=== PATIENT | female | born 1990 | race Caucasian/White ===

== ENCOUNTER 2016-09-26 15:07 | Emergency (ER) | payer OTHER ==
[2016-09-26] MEDS ORDERED: MECLIZINE 12.5 MG TABLET PO STA (17:15)
[2016-09-26] MEDS ORDERED: MECLIZINE 12.5 MG TABLET PO ONE (17:18)
== END 2016-09-26 17:38 | disposition home or self-care (01) ==
DX: R42 Dizziness and giddiness (principal); I10 Essential (primary) hypertension; Z87.891 Personal history of nicotine dependence
CPT/HCPCS: 81025; 99283; A9270

== ENCOUNTER 2016-12-23 13:29 | Emergency (ER) | payer OTHER ==
[2016-12-23] MEDS ORDERED: ONDANSETRON ODT 4 MG TABLET TL STA ×2 (14:09→15:12)
[2016-12-23] MEDS ORDERED: ONDANSETRON ODT 4 MG TABLET ONE ×2 (14:15→15:39)
[2016-12-23 14:18] LABS: BILIRUBIN,URINE NEGATIVE (NEGATIVE)
[2016-12-23 14:20] LABS: UA w/ MICROSCOPIC CHARGE YES
[2016-12-23 14:26] LABS: UR CULTURE IF IND INDICATED; WBC,URINE 0-3 /HPF (0-5)
[2016-12-23 14:31] LABS: HCG UR QUAL NEGATIVE
[2016-12-23 15:08] VITALS: BP 151/71
[2016-12-23] MEDS ORDERED: HYDROcod/ACETAM 5/325 MG TABLET PO STA (15:34)
[2016-12-23] MEDS ORDERED: HYDROcod/ACETAM 5/325 MG TABLET ONE (15:39)
--- NOTE | 2016-12-23 15:43 | ED Physician Documentation ---
PD HPI FEMALE - Stated complaint Stated Complaint: FEMALE - Chief complaint Chief Complaint: Abd Pain - History obtained from History obtained from: Patient - History of Present Illness Timing - onset: How many days ago (3) Timing - details: Still present Associated symptoms: Pelvic pain, Vaginal bleeding, Urinary frequency. No: Dysuria Similar symptoms before: Has not had sx before - Additional information Additional information: Patient is a 26-year-old female who presents with cramping suprapubic abdominal pain radiating to her lower back. Her symptoms started 3 days ago with onset of her menstrual period. This menstrual period is heavier than usual, soaking up to one pad every 4 hours. She denies fever or dysuria, but reports frequency of urination. She reports nausea, without vomiting. She denies history of similar symptoms in the past. Review of Systems Constitutional: denies: Fever Nose: denies: Congestion Throat: denies: Sore throat Cardiac: denies: Chest pain / pressure Respiratory: denies: Dyspnea, Cough GI: reports: Abdominal Pain, Nausea. denies: Vomiting : reports: Frequency, LMP (Started 3 days ago.), Vaginal bleeding. denies: Dysuria Skin: denies: Rash Musculoskeletal: reports: Back pain (Mild lower back pain.) Neurologic: reports: Headache. 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 Other Past Medical History: pcos - Past Surgical History Past Surgical History: No - Present Medications Home Medications: Ambulatory Orders Medication Instructions Recorded Confirmed Promethazine [Phenergan] 25 - 50 mg PO Q6H PRN #10 tab 12/23/16 Tramadol HCl [Ultram] 50 mg PO BID PRN #15 tablet 12/23/16 - Allergies Allergies/Adverse Reactions: Allergies Allergy/AdvReac Type Severity Reaction Status Date / Time Sulfa (Sulfonamide Allergy Hives Verified 11/01/13 11:40 Antibiotics) sulfamethoxazole AdvReac Hives Verified 10/02/15 16:56 [From Bactrim] trimethoprim [From Bactrim] AdvReac Hives Verified 10/02/15 16:56 - Social History Does the pt smoke?: No Smoking Status: Former smoker Does the pt drink ETOH?: Yes Does the pt have substance abuse?: No - Immunizations Immunizations are current?: Yes - POLST Patient has POLST: No PD ED PE NORMAL - Vitals Vital signs reviewed: Yes (hypertensive) - General General: Alert and oriented X 3, Other (Morbidly obese.) - HEENT HEENT: Atraumatic - Neck Neck: No adenopathy - Cardiac Cardiac: RRR - Respiratory Respiratory: No respiratory distress, Clear bilaterally - Abdomen Abdomen: Normal bowel sounds, Soft, Other (Left lower quadrant/suprapubic tenderness to palpation, without rebound or guarding.) - Female Female : 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 No: CMT, Dilated cervix Results - Vitals Vitals: Vital Signs - 24 hr 12/23/16 12/23/16 13:40 15:07 Temperature 36.8 C 36.8 C Heart Rate 79 77 Respiratory 18 17 Rate Blood Pressure 195/110 H 151/71 H O2 Saturation 98 99 Oxygen O2 Source Room air - Labs Labs: Laboratory Tests 12/23/16 14:00 Urine Color RED/BLOODY Urine Clarity HAZY Urine pH 6.0 Ur Specific [place] 1.020 Urine Protein 30 H Urine Glucose (UA) NEGATIVE Urine Ketones NEGATIVE Urine Occult Blood LARGE H Urine Nitrite NEGATIVE Urine Bilirubin NEGATIVE Urine Urobilinogen 0.2 (NORMAL) Ur Leukocyte Esterase TRACE H Urine RBC TNTC H Urine WBC 0-3 Ur Squamous Epith Cells FEW Squamous Urine Bacteria Rare Ur Microscopic Review INDICATED Urine Culture Comments INDICATED Urine HCG, Qual NEGATIVE PD MEDICAL DECISION MAKING - ED course Complexity details: reviewed results, re-evaluated patient, considered differential, d/w patient, d/w family ED course: The patient's presentation is most consistent with heavy menstrual period with associated cramping. Urinalysis is negative for evidence of urinary tract infection, and urine test is negative. Her presentation does not suggest diverticulitis or appendicitis. I doubt ovarian torsion, although ovarian cyst remains a possibility, particularly given the patient's history of polycystic ovarian syndrome. Treatment in the emergency department included administration of Zofran 4 mg orally 2, and Vicodin 1 tablet orally. She is being discharged with a prescription for Ultram, 15 tablets, and Phenergan. I discussed with her and her the expected course of illness, symptomatic treatment and outpatient follow-up, as well as potentially worrisome signs or symptoms that should prompt reevaluation in the emergency department. Departure - Departure Disposition: 01 Home, Self Care Clinical Impression: Pelvic pain, Menstrual cramps Condition: Stable Instructions: ED Pelvic Pain [facility] Follow-Up: MARYBETH MCGILL [Primary Care Provider] - Prescriptions: Promethazine [Phenergan] 25 - 50 mg PO Q6H PRN #10 tab PRN Reason: Nausea / Vomiting Tramadol HCl [Ultram] 50 mg PO BID PRN #15 tablet PRN Reason: Pain Comments: Drink plenty of fluids. You can use ibuprofen, up to 800 mg 3 times daily if needed for pain. You can also use tramadol as prescribed if needed for pain. You can use Phenergan as prescribed if needed for nausea. Follow up with your primary physician within one to 2 weeks. Call to schedule an appointment. Return to the emergency department if you develop increasing pain, or otherwise worsening symptoms. Discharge Date/Time: 12/23/16 16:05
== END 2016-12-23 16:05 | disposition home or self-care (01) ==
LOC: ED 13:29
DX: N94.6 Dysmenorrhea, unspecified (principal); R10.2 Pelvic and perineal pain; R11.0 Nausea; I10 Essential (primary) hypertension; Z87.891 Personal history of nicotine dependence
CPT/HCPCS: 81001; 81025; 87086; 87491; 87591; 99283; 99284; A9270; Q0162; 81003

== ENCOUNTER 2017-05-11 13:58 | Emergency (ER) | payer OTHER ==
--- NOTE | 2017-05-11 14:13 | ED Physician Documentation ---
PD HPI UPPER EXT INJURY - Stated complaint Stated Complaint: CAT BITE - Chief complaint Chief Complaint: Wound - History obtained from History obtained from: Patient - History of Present Illness Location: Other (She was bitten to the right wrist by her own fully immunized cat just prior to arrival. Pain is minimal. 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 - Past Surgical History Past Surgical History: No - Present Medications Home Medications: Ambulatory Orders Medication Instructions Recorded Confirmed Amox/Clav 875/125 [Augmentin] 1 each PO Q12H #10 tablet 05/11/17 Propranolol HCl [Innopran Xl] 120 mg PO DAILY 05/11/17 05/11/17 - Allergies Allergies/Adverse Reactions: Allergies Allergy/AdvReac Type Severity Reaction Status Date / Time Sulfa (Sulfonamide Allergy Hives Verified 11/01/13 11:40 Antibiotics) sulfamethoxazole AdvReac Hives Verified 10/02/15 16:56 [From Bactrim] trimethoprim [From Bactrim] AdvReac Hives Verified 10/02/15 16:56 - Social History Does the pt smoke?: No Smoking Status: Never smoker Does the pt drink ETOH?: Yes Does the pt have substance abuse?: No - Immunizations Immunizations are current?: Yes - POLST Patient has POLST: No PD ED PE NORMAL - Vitals Vital signs reviewed: Yes - General General: Alert and oriented X 3, No acute distress - Extremities Extremities: Other (There is a single puncture wound over the wrist flexor crease, Between where the ulnar artery in the median nerve would be, there is no distal neurovascular compromise, full range of motion.) - Neuro Neuro: Alert and oriented X 3, Normal speech - Psych Psych: Normal mood, Normal affect Results - Vitals Vitals: Vital Signs - 24 hr 05/11/17 14:06 Temperature 36.9 C Heart Rate 80 Respiratory 17 Rate Blood Pressure 190/107 H O2 Saturation 100 Oxygen O2 Source Room air PD MEDICAL DECISION MAKING - ED course ED course: She had already irrigated the wound at home, dressing was placed, tetanus was updated and she was placed on Augmentin. Departure - Departure Disposition: Home, Self Care Clinical Impression: Animal bite with open wound Hypertension Qualifiers: Hypertension type: essential hypertension Qualified Code(s): I10 - Essential ( primary) hypertension Condition: Good Record reviewed to determine appropriate education?: Yes Instructions: Bites Scratches Animal Prescriptions: Amox/Clav 875/125 [Augmentin] 1 each PO Q12H #10 tablet Comments: You can wash the wound with soap and water, otherwise keep a dressing on it such as a Band-Aid. Recheck your blood pressure with your doctor in 1 week, it was quite high today. Return for signs of infection, specifically redness, swelling, drainage, increased pain, limited range of motion, or fever.
[2017-05-11] MEDS: AMOX/CLAV 875 MG/125 MG TABLET PO STA (14:25)
[2017-05-11] MEDS: TETANUS/DIPHTHERIA/PERTUSSIS 0.5 ML SYRINGE IM ONE (14:26)
[2017-05-11] MEDS ORDERED: TETANUS/DIPHTHERIA/PERTUSSIS 0.5 ML SYRINGE IM ONE (14:29)
[2017-05-11] MEDS ORDERED: AMOX/CLAV 875 MG/125 MG TABLET PO ONE (14:29)
[2017-05-11 14:53] VITALS: BP 161/100
== END 2017-05-11 14:50 | disposition home or self-care (01) ==
LOC: ED 13:58
DX: S60.871A Other superficial bite of right wrist, initial encounter (principal); W55.01XA Bitten by cat, initial encounter; I10 Essential (primary) hypertension; Z23 Encounter for immunization
CPT/HCPCS: 90471; 99283

== ENCOUNTER 2017-05-15 17:44 | Emergency (ER) | payer OTHER ==
[2017-05-15] MEDS ORDERED: SUMAtriptan 6 MG/0.5 ML VIAL SUBQ STA (18:11)
--- NOTE | 2017-05-15 18:15 | ED Physician Documentation ---
History of Present Illness - Stated complaint Stated Complaint: BLOOD PRESSURE - Chief complaint Chief Complaint: General - History obtained from History obtained from: Patient, Family - History of Present Illness Timing: Today Pain level max: 5 Pain level now: 5 Improved by: nothing Worsened by: nothing - Additonal information Additional information: Patient is a 26-year-old female with intermittent hypertension for the past several weeks. Today noted her blood pressure to be approximately 190 systolic , called and told to come here. Denies any chest pain, shortness of breath, visual changes. Does have headache intermittently and states that this feels like her normal headache today. No vision disturbances. No focal neurological deficits. Review of Systems Constitutional: denies: Fever, Chills Ears: denies: Ear pain Nose: denies: Rhinorrhea / runny nose, Congestion Cardiac: denies: Chest pain / pressure Respiratory: denies: Cough GI: denies: Abdominal Pain, Nausea, Vomiting, Diarrhea Skin: denies: Rash Musculoskeletal: denies: Neck pain, Back pain Neurologic: reports: Headache (mild generalized, aching, dull. similar to prior headaches. Occasional burning.). 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 - Past Surgical History Past Surgical History: No - Present Medications Home Medications: Ambulatory Orders Medication Instructions Recorded Confirmed Propranolol HCl [Innopran Xl] 120 mg PO DAILY 05/11/17 05/15/17 Amox/Clav 875/125 [Augmentin 1 tab PO DAILY 05/15/17 05/15/17 875/125] - Allergies Allergies/Adverse Reactions: Allergies Allergy/AdvReac Type Severity Reaction Status Date / Time Sulfa (Sulfonamide Allergy Hives Verified 11/01/13 11:40 Antibiotics) sumatriptan [From Imitrex] AdvReac Intermediate Anxiety Verified 05/15/17 18:47 sulfamethoxazole AdvReac Hives Verified 10/02/15 16:56 [From Bactrim] trimethoprim [From Bactrim] AdvReac Hives Verified 10/02/15 16:56 - Social History Does the pt smoke?: No Smoking Status: Never smoker Does the pt drink ETOH?: Yes Does the pt have substance abuse?: No - Immunizations Immunizations are current?: Yes - POLST Patient has POLST: No PD ED PE NORMAL - Vitals Vital signs reviewed: Yes - General General: Alert and oriented X 3, No acute distress, Well developed/nourished - HEENT HEENT: PERRL, Moist mucous membranes - Neck Neck: Supple, no meningeal sign - Cardiac Cardiac: RRR, Strong equal pulses - Respiratory Respiratory: No respiratory distress, Clear bilaterally - Abdomen Abdomen: Soft, Non tender, Non distended - Back Back: No CVA TTP - Derm Derm: Warm and dry, No rash - Extremities Extremities: No edema - Neuro Neuro: Alert and oriented X 3, group home supervisor 2-12 intact, No motor deficit, No sensory deficit, Normal speech - Psych Psych: Normal mood, Normal affect Results - Vitals Vitals: Vital Signs - 24 hr 05/15/17 05/15/17 05/15/17 17:50 17:59 18:25 Temperature 36.9 C Heart Rate 76 87 Respiratory 22 16 Rate Blood Pressure 156/86 H 161/92 H O2 Saturation 100 100 05/15/17 18:28 Temperature Heart Rate 84 Respiratory 16 Rate Blood Pressure 157/83 H O2 Saturation 97 Oxygen O2 Source Room air PD MEDICAL DECISION MAKING - ED course Complexity details: re-evaluated patient, considered differential, d/w patient, d/w family ED course: Patient is a 26-year-old female who presents to the emergency department with asymptomatic hypertension today. Her blood pressure decreased on its own in the emergency department. Headache felt better after Ativan and Imitrex. Imitrex did initially make her feel like her skin was "on fire". But this quickly resolved. She will follow-up with her PCP for further evaluation and care. No chest pain. No shortness of breath. No neurological deficits. No vision changes. Patient counseled regarding signs and symptoms for which I believe and urgent re-evaluation would be necessary. Patient with good understanding of and agreement to plan and is comfortable going home at this time This document was made in part using voice recognition software. While efforts are made to proofread this document, sound alike and grammatical errors may occur. Departure - Departure Disposition: 01 Home, Self Care Clinical Impression: Hypertension Qualifiers: Hypertension type: unspecified Qualified Code(s): I10 - Essential (primary) hypertension Headache Qualifiers: Headache type: unspecified Headache chronicity pattern: acute headache Intractability: not intractable Qualified Code(s): R51 - Headache Condition: Good Instructions: ED Cephalgia Unspecified, ED HTN Established Follow-Up: MARYBETH MCGILL [Primary Care Provider] - Within 1 week Comments: Make sure to keep a log of your blood pressures. Follow-up with your doctor so that they may adjust your blood pressure medications. Return if you worsen Discharge Date/Time: 05/15/17 18:51
[2017-05-15] MEDS ORDERED: SUMAtriptan 6 MG/0.5 ML VIAL SUBQ ONE (18:19)
[2017-05-15] MEDS ORDERED: LORazepam 0.5 MG TABLET PO STA (18:24)
[2017-05-15 18:28] VITALS: BP 157/83
[2017-05-15] MEDS ORDERED: LORazepam 0.5 MG TABLET ONE (18:32)
== END 2017-05-15 18:51 | disposition home or self-care (01) ==
LOC: ED 17:44
DX: I10 Essential (primary) hypertension (principal); R51 Headache
CPT/HCPCS: 96372; 99283; A9270

== ENCOUNTER 2017-10-30 18:31 | Emergency (ER) | payer OTHER ==
[2017-10-30 19:00] LABS: BILIRUBIN,URINE NEGATIVE (NEGATIVE); GLUCOSE, URINE (UA) NEGATIVE (NEGATIVE); KETONES,URINE (UA) NEGATIVE (NEGATIVE); LEUKOCYTE ESTERASE, URINE NEGATIVE (NEGATIVE); NITRITE,URINE NEGATIVE (NEGATIVE); OCCULT BLOOD,URINE NEGATIVE (NEGATIVE); PROTEIN,URINE NEGATIVE (NEGATIVE); UROBILINOGEN,URINE 0.2 (NORMAL) E.U./dL (NORMAL)
[2017-10-30 19:08] LABS: CLARITY,URINE CLEAR (CLEAR); HCG UR QUAL NEGATIVE
[2017-10-30 19:15] LABS: BASOPHILS % (AUTO) 0.4 %; EOSINOPHILS # (AUTO) 0.2 10^3/uL (0.0-0.7); HGB - HEMOGLOBIN 13.9 g/dL (12.0-16.0); LYMPHOCYTES # (AUTO) 2.6 10^3/uL (1.5-3.5); LYMPHOCYTES % (AUTO) 24.7 %; MEAN CORPUSCULAR HEMOGLOBIN 27.9 pg (27.0-31.0); MEAN CORPUSCULAR HGB CONC 32.7 g/dL (32.0-36.0); MEAN CORPUSCULAR VOLUME 85.5 fL (81.0-99.0); MEAN PLATELET VOLUME 7.7 fL (7.9-10.8); MONOCYTES # (AUTO) 0.6 10^3/uL (0.0-1.0); MONOCYTES % (AUTO) 5.9 %; PLT - PLATELET COUNT 266 10^3/uL (130-450); RED BLOOD COUNT 4.97 10^6/uL (4.20-5.40); RED CELL DISTRIBUTION WIDTH 13.8 % (12.0-15.0); WHITE BLOOD COUNT 10.5 x10^3/uL (4.8-10.8)
[2017-10-30 19:30] LABS: ALBUMIN/GLOBULIN RATIO 1.6 (1.0-2.2); ALKALINE PHOSPHATASE 59 IU/L (42-121); ALT ALANINE AMINOTRANSFERASE 32 IU/L (10-60); AST ASPARTATE AMINOTRANSFERASE 26 IU/L (10-42); BILIRUBIN,TOTAL < 0.2 mg/dL (0.2-1.0); BUN - BLOOD UREA NITROGEN 11 mg/dL (6-20); CALCIUM 9.6 mg/dL (8.5-10.3); CARBON DIOXIDE - CO2 30 mmol/L (21-32); CHLORIDE 98 mmol/L (101-111); CREATININE 0.7 mg/dL (0.4-1.0); GFR - MDRD 100 (>89); GLUCOSE 96 mg/dL (70-100); LIPASE 40 U/L (22-51); SODIUM 137 mmol/L (135-145); TOTAL PROTEIN 8.2 g/dL (6.7-8.2)
[2017-10-30] MEDS ORDERED: KETOROLAC 60 MG/2 ML VIAL IVP STA (19:46)
[2017-10-30] MEDS ORDERED: IOPAMIDOL-300 100 ML VIAL ONE (20:05)
[2017-10-30] MEDS ORDERED: IOPAMIDOL-300 100 ML VIAL IVP ONE (20:48)
[2017-10-30 21:02] VITALS: BP 152/84
--- NOTE | 2017-10-30 21:13 | CT Preliminary Report ---
Exam: CT ABDOMEN/PELVIS W/ IMPRESSION: No acute intraductal abnormality. Specifically no evidence of urinary obstruction or other cause for right flank pain. However, pyelonephritis remains a clinical diagnosis which cannot be completely exc luded by any imaging. [facility] SITE ID: [id number]
--- NOTE | 2017-10-30 21:17 | CT Report ---
EXAM: CT ABDOMEN AND PELVIS EXAM DATE: 10/30/2017 08:57 PM. CLINICAL HISTORY: Right flank pain. COMPARISONS: Chest radiograph 03/20/2015 and 05/10/2014. TECHNIQUE: Routine helical CT imaging was performed through the abdomen and pelvis. IV contrast: 100 mL Isovue 300. Enteric contrast: No. Reconstructions: Coronal and sagittal. In accordance with CT protocol optimization, one or more of the following dose reduction techniques w ere utilized for this exam: automated exposure control, adjustment of mA and/or KV based on patient s ize, or use of iterative reconstructive technique. FINDINGS: Lung Bases: Unremarkable. Liver: Normal size and surface contour. A subcentimeter hypodensity within the superior right hepatic lobe centrally is too small to fully characterize, statistically likely a cyst or hemangioma in the absence of known malignancy (3/15). Gallbladder/Bile Ducts: Unremarkable. Spleen: Normal. Pancreas: Normal. Adrenal Glands: Normal. Kidneys: Normal. No masses or hydronephrosis. Peritoneal Cavity/Bowel: -No free fluid. No extraluminal gas. -No abnormally enlarged lymph nodes. -No evidence of bowel obstruction or inflammation. Stool burden is above average. The appendix is not discretely visualized but there are no secondary signs of acute appendicitis. Pelvic Organs: The urinary bladder is near completely decompressed but unremarkable. -The uterus is anteflexed and within normal limits. No adnexal mass demonstrated Vasculature: No aneurysms or other significant abnormality. Bones: No significant abnormality. Other: Tiny fat-containing periumbilical hernia. No bowel containing abdominal wall hernia. IMPRESSION: No acute intra-abdominal abnormality. Specifically no evidence of urinary obstruction or other cause for right flank pain. However, pyelonephritis remains a clinical diagnosis which cannot be completely excluded by any imaging. [facility] Referring Provider Line: [phone] SITE ID: [id number]
--- NOTE | 2017-10-30 21:22 | ED Physician Documentation ---
PD HPI ABD PAIN - Stated complaint Stated Complaint: KIDNEY PX - Chief complaint Chief Complaint: Abd Pain - History obtained from History obtained from: Patient, Family - History of Present Illness Timing - onset: How many weeks ago (1.5) Timing - duration: Weeks (1.5) Timing - details: Gradual onset Pain level max: 8 Pain level now: 7 Quality: Aching, Pain Location: Other (R flank) Radiation: Other (Nonradiating) Improved by: Laying still Worsened by: Moving, Palpation Associated symptoms: Constipation (Intermittent). No: Fever, Nausea, Vomiting, Hematemesis, Diarrhea, Melena, Hematochezia, Dysuria, Hematuria, Chest pain, Dizzy, Near syncope / syncope Similar symptoms before: No diagnosis - Additional information Additional information: Patient is a 27-year-old female with right flank pain for the past week and a half. This is intermittent. Saw her doctor last Monday and was told that she had white blood cells on her urine and should come to the emergency department. 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 - Past Surgical History Past Surgical History: No - Present Medications Home Medications: Ambulatory Orders Medication Instructions Recorded Confirmed Propranolol HCl [Innopran Xl] 120 mg PO DAILY 05/11/17 05/15/17 Amox/Clav 875/125 [Augmentin 1 tab PO DAILY 05/15/17 05/15/17 875/125] Cyclobenzaprine [Flexeril] 10 mg PO TID PRN #20 tablet 10/30/17 Meloxicam [Mobic] 15 mg PO DAILY PRN #20 tablet 10/30/17 Polyethylene Glycol 3350 [Miralax] 17 gm PO DAILY PRN #1 bottle 10/30/17 - Allergies Allergies/Adverse Reactions: Allergies Allergy/AdvReac Type Severity Reaction Status Date / Time Sulfa (Sulfonamide Allergy Hives Verified 11/01/13 11:40 Antibiotics) sumatriptan [From Imitrex] AdvReac Intermediate Anxiety Verified 05/15/17 18:47 sulfamethoxazole AdvReac Hives Verified 10/02/15 16:56 [From Bactrim] trimethoprim [From Bactrim] AdvReac Hives Verified 10/02/15 16:56 - Social History Does the pt smoke?: No Smoking Status: Never smoker Does the pt drink ETOH?: Yes Does the pt have substance abuse?: No - Immunizations Immunizations are current?: Yes - POLST Patient has POLST: No PD ED PE NORMAL - Vitals Vital signs reviewed: Yes - General General: Alert and oriented X 3, No acute distress - HEENT HEENT: Moist mucous membranes - Neck Neck: Supple, no meningeal sign - Cardiac Cardiac: RRR, Strong equal pulses - Respiratory Respiratory: No respiratory distress, Clear bilaterally - Abdomen Abdomen: Soft, Non tender, Non distended - Back Back: No spinal TTP, Other (Mild right CVA tenderness. No spasm present. No midline tenderness to palpation or percussion) - Derm Derm: Warm and dry - Neuro Neuro: Alert and oriented X 3 - Psych Psych: Normal mood, Normal affect Results - Vitals Vitals: Oxygen O2 Source Room air - Labs Labs: Laboratory Tests 10/30/17 10/30/17 10/30/17 18:46 19:00 19:00 WBC 10.5 RBC 4.97 Hgb 13.9 Hct 42.5 MCV 85.5 MCH 27.9 MCHC 32.7 RDW 13.8 Plt Count 266 MPV 7.7 L Neut # 7.0 H Lymph # 2.6 [place] # 0.6 Eos # 0.2 Baso # 0.0 Absolute Nucleated RBC 0.00 Nucleated RBC % 0.0 Sodium 137 Potassium 3.6 Chloride 98 L Carbon Dioxide 30 Anion Gap 9.0 BUN 11 Creatinine 0.7 Estimated GFR (MDRD) 100 Glucose 96 Calcium 9.6 Total Bilirubin < 0.2 L AST 26 ALT 32 Alkaline Phosphatase 59 Total Protein 8.2 Albumin 5.0 Globulin 3.2 Albumin/Globulin Ratio 1.6 Lipase 40 Urine Color LT. YELLOW Urine Clarity CLEAR Urine pH 6.0 Ur Specific [place] 1.015 Urine Protein NEGATIVE Urine Glucose (UA) NEGATIVE Urine Ketones NEGATIVE Urine Occult Blood NEGATIVE Urine Nitrite NEGATIVE Urine Bilirubin NEGATIVE Urine Urobilinogen 0.2 (NORMAL) Ur Leukocyte Esterase NEGATIVE Ur Microscopic Review NOT INDICATED Urine Culture Comments NOT INDICATED Urine HCG, Qual NEGATIVE - Rads (name of study) CT abdomen and pelvis Radiology: Prelim report reviewed, EMP read contemporaneously, See rad report ( No acute abnormality) PD MEDICAL DECISION MAKING - ED course Complexity details: reviewed old records, reviewed results, re-evaluated patient , considered differential, d/w patient, d/w family ED course: Patient is a 27-year-old female who presents to the emergency department with right flank pain. Her primary care provider was unavailable for consult, however I reviewed her laboratory tests results from Monday on her phone which showed red blood cells in her urine, she was on her menses at that time however. Appears that her primary care provider was worried about a ureteral stone on her clinic note. Clean urinalysis here. CT scan undertaken which reveals no ureteral stones, no masses, no evidence of pyelonephritis. Does not appear to be pyelonephritis clinically either. We will continue supportive care and treat her as if this is muscular pain and see how this progresses. She also did appear to have constipation in the right side of her colon and will place on laxatives for this. Patient counseled regarding signs and symptoms for which I believe and urgent re-evaluation would be necessary. Patient with good understanding of and agreement to plan and is comfortable going home at this time This document was made in part using voice recognition software. While efforts are made to proofread this document, sound alike and grammatical errors may occur. Departure - Departure Disposition: 01 Home, Self Care Clinical Impression: Flank pain Constipation Qualifiers: Constipation type: unspecified constipation type Qualified Code(s): K59.00 - Constipation, unspecified Condition: Good Instructions: ED Abdominal Pain Unkn Cause, ED Constipation Follow-Up: ADRIAN LAWSON [Primary Care Provider] - Within 1 week Prescriptions: Cyclobenzaprine [Flexeril] 10 mg PO TID PRN #20 tablet PRN Reason: Spasms Meloxicam [Mobic] 15 mg PO DAILY PRN #20 tablet PRN Reason: pain Polyethylene Glycol 3350 [Miralax] 17 gm PO DAILY PRN #1 bottle PRN Reason: Constipation Comments: This should improve over the next few days. Return if you worsen. Heating pad may help as well. Drink plenty of water. Discharge Date/Time: 10/30/17 21:50
== END 2017-10-30 21:50 | disposition home or self-care (01) ==
LOC: ED 18:31
DX: R10.31 Right lower quadrant pain (principal); K59.00 Constipation, unspecified; I10 Essential (primary) hypertension
CPT/HCPCS: 36415; 74177; 80053; 81003; 81025; 83690; 85025; 96374; 99283; 99284; Q9967; 81001; 87086

== ENCOUNTER 2018-01-17 13:48 | Emergency (ER) | payer OTHER ==
[2018-01-17 13:57] VITALS: BP 160/93
--- NOTE | 2018-01-17 16:46 | ED Physician Documentation ---
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 - Past Surgical History Past Surgical History: No - Present Medications Home Medications: Ambulatory Orders Medication Instructions Recorded Confirmed Erythromycin Base [Erythromycin] 1 applic OP Q4H #1 tub 01/17/18 Lisinopril [Prinivil] 20 mg PO DAILY 01/17/18 01/17/18 Omeprazole [PriLOSEC] 20 mg PO DAILY 01/17/18 01/17/18 metFORMIN [Glucophage] 500 mg PO DAILY 01/17/18 01/17/18 - Allergies Allergies/Adverse Reactions: Allergies Allergy/AdvReac Type Severity Reaction Status Date / Time Sulfa (Sulfonamide Allergy Hives Verified 01/17/18 16:06 Antibiotics) sumatriptan [From Imitrex] AdvReac Intermediate Anxiety Verified 01/17/18 16:06 sulfamethoxazole AdvReac Hives Verified 01/17/18 16:06 [From Bactrim] trimethoprim [From Bactrim] AdvReac Hives Verified 01/17/18 16:06 - Social History Does the pt smoke?: No Smoking Status: Never smoker Does the pt drink ETOH?: Yes Does the pt have substance abuse?: No - Immunizations Immunizations are current?: Yes - POLST Patient has POLST: No PD ED PE NORMAL - Vitals Vital signs reviewed: Yes - HEENT HEENT: PERRL, EOMI, Other (no proptosis, mild swelling lower lid with some dc in lashes, no FB even under upper ld, no uptake with flourscein, no retuinal tear or hemorrhage identified on undilated fundoscopic) Results - Vitals Vitals: Vital Signs - 24 hr 01/17/18 01/17/18 13:52 13:56 Temperature 36.6 C Heart Rate 100 95 Respiratory 18 18 Rate Blood Pressure 149/102 H 160/93 H O2 Saturation 99 100 Oxygen O2 Source Room air PD MEDICAL DECISION MAKING - Sepsis Event Vital Signs: Vital Signs - 24 hr 01/17/18 01/17/18 13:52 13:56 Temperature 36.6 C Heart Rate 100 95 Respiratory 18 18 Rate Blood Pressure 149/102 H 160/93 H O2 Saturation 99 100 Oxygen O2 Source Room air Departure - Departure Disposition: 01 Home, Self Care Clinical Impression: Conjunctivitis Qualifiers: Conjunctivitis type: acute Acute conjunctivitis type: unspecified Laterality: right Qualified Code(s): H10.31 - Unspecified acute conjunctivitis, right eye Condition: Good Instructions: ED Conjunctivitis Nonspecific Prescriptions: Erythromycin Base [Erythromycin] 1 applic OP Q4H #1 tub Comments: If worse [place] please get your blood pressure rechecked - it was high today Forms: Activity restrictions
== END 2018-01-17 17:01 | disposition home or self-care (01) ==
LOC: ED 13:48
DX: H10.31 Unspecified acute conjunctivitis, right eye (principal)
CPT/HCPCS: 99283

== ENCOUNTER 2018-03-04 11:08 | Emergency (ER) | payer OTHER ==
[2018-03-04 11:25] VITALS: BP 177/103
--- NOTE | 2018-03-04 12:44 | ED Physician Documentation ---
PD HPI URI - Stated complaint Stated Complaint: COUGH - Chief complaint Chief Complaint: Resp - History obtained from History obtained from: Patient - History of Present Illness Timing - onset: Other (4 days of productive cough with green sputum, sinus pain especially on the left, shortness of breath. No fevers or chills and no possibility of . She has a history of asthma and she smokes.) Review of Systems Constitutional: reports: Fatigue. 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 - Past Surgical History Past Surgical History: No - Present Medications Home Medications: Ambulatory Orders Medication Instructions Recorded Confirmed Erythromycin Base [Erythromycin] 1 applic OP Q4H #1 tub 01/17/18 Lisinopril [Prinivil] 20 mg PO DAILY 01/17/18 01/17/18 Omeprazole [PriLOSEC] 20 mg PO DAILY 01/17/18 01/17/18 metFORMIN [Glucophage] 500 mg PO DAILY 01/17/18 01/17/18 Albuterol Sulf [Ventolin Hfa 1 - 2 puffs INH Q4HR PRN #1 inhaler 03/04/18 Inhaler] Doxycycline Hyclate 100 mg PO BID #20 capsule 03/04/18 Hydrocodone/Chlorphen P-Stirex 5 ml PO BID PRN #90 ml 03/04/18 [Hydrocodone-Chlorphen ER Susp] predniSONE [Prednisone] 40 mg PO DAILY #10 tablet 03/04/18 - Allergies Allergies/Adverse Reactions: Allergies Allergy/AdvReac Type Severity Reaction Status Date / Time Sulfa (Sulfonamide Allergy Hives Verified 03/04/18 11:25 Antibiotics) sumatriptan [From Imitrex] AdvReac Intermediate Anxiety Verified 03/04/18 11:25 sulfamethoxazole AdvReac Hives Verified 03/04/18 11:25 [From Bactrim] trimethoprim [From Bactrim] AdvReac Hives Verified 03/04/18 11:25 - Social History Does the pt smoke?: No Smoking Status: Never smoker Does the pt drink ETOH?: Yes Does the pt have substance abuse?: No - Immunizations Immunizations are current?: Yes - POLST Patient has POLST: No PD ED PE NORMAL - Vitals Vital signs reviewed: Yes - General General: Alert and oriented X 3, No acute distress, Other (We discussed her blood pressure, she had taken her lisinopril basically in the parking lot on her way in.) - HEENT HEENT: PERRL, EOMI - Neck Neck: Supple, no meningeal sign, No bony TTP, No adenopathy - Cardiac Cardiac: RRR, No murmur - Respiratory Respiratory: No respiratory distress, Other (Faint crackles left upper lobe, otherwise clear, nonlabored.) - Abdomen Abdomen: Non tender - Neuro Neuro: Alert and oriented X 3, Normal speech Results - Vitals Vitals: Vital Signs - 24 hr 03/04/18 11:21 Temperature 36 C L Heart Rate 86 Respiratory 16 Rate Blood Pressure 177/103 H O2 Saturation 100 Oxygen O2 Source Room air PD MEDICAL DECISION MAKING - Sepsis Event Vital Signs: Vital Signs - 24 hr 03/04/18 11:21 Temperature 36 C L Heart Rate 86 Respiratory 16 Rate Blood Pressure 177/103 H O2 Saturation 100 Oxygen O2 Source Room air Departure - Departure Disposition: 01 Home, Self Care Clinical Impression: Pneumonia Qualifiers: Pneumonia type: due to unspecified organism Laterality: left Lung location: upper lobe of lung Qualified Code(s): J18.1 - Lobar pneumonia, unspecified organism Hypertension Qualifiers: Hypertension type: essential hypertension Qualified Code(s): I10 - Essential ( primary) hypertension Instructions: Pneumonia Dc Prescriptions: Albuterol Sulf [Ventolin Hfa Inhaler] 1 - 2 puffs INH Q4HR PRN #1 inhaler PRN Reason: Shortness Of Air/Wheezing Doxycycline Hyclate 100 mg PO BID #20 capsule Hydrocodone/Chlorphen P-Stirex [Hydrocodone-Chlorphen ER Susp] 5 ml PO BID PRN # 90 ml PRN Reason: Cough predniSONE [Prednisone] 40 mg PO DAILY #10 tablet Forms: Activity restrictions
== END 2018-03-04 12:49 | disposition home or self-care (01) ==
LOC: ED 11:08
DX: J18.1 Lobar pneumonia, unspecified organism (principal); I10 Essential (primary) hypertension; J45.909 Unspecified asthma, uncomplicated
CPT/HCPCS: 99281; 99283

== ENCOUNTER 2018-09-01 12:20 | Emergency (ER) | payer OTHER ==
[2018-09-01 12:38] VITALS: BP 132/77
--- NOTE | 2018-09-01 14:55 | ED Physician Documentation ---
PD HPI URI - Stated complaint Stated Complaint: SOA/COUGH - Chief complaint Chief Complaint: Resp - History obtained from History obtained from: Patient - History of Present Illness Timing duration: Days (5-6) Timing details: Gradual onset, Still present Associated symptoms: Fever, Chills, Productive cough, Dyspnea. No: Hemoptysis, Chest pain, NVD Contributing factors: No: Sick contact, COPD / asthma Improves by: No: Medication (cough med and Tessalon) Worsened by: Activity Similar symptoms before: Has not had sx before Recently seen: Clinic (Dx URI and Rx with Tessalon, that is not helping cough.) Review of Systems Constitutional: reports: Fever, Myalgias Nose: reports: Rhinorrhea / runny nose, Congestion Throat: denies: Sore throat Cardiac: reports: Chest pain / pressure (sternal area and upper abd with coughing.) Respiratory: reports: Dyspnea, Cough GI: denies: Nausea, Vomiting, Diarrhea Skin: denies: Rash PD PAST MEDICAL HISTORY - Past Medical History Cardiovascular: Hypertension Respiratory: Pneumonia, 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 - Past Surgical History Past Surgical History: No - Present Medications Home Medications: Ambulatory Orders Medication Instructions Recorded Confirmed Erythromycin Base [Erythromycin] 1 applic OP Q4H #1 tub 01/17/18 Lisinopril [Prinivil] 20 mg PO DAILY 01/17/18 01/17/18 Omeprazole [PriLOSEC] 20 mg PO DAILY 01/17/18 01/17/18 metFORMIN [Glucophage] 500 mg PO DAILY 01/17/18 01/17/18 Albuterol Sulf [Ventolin Hfa 1 - 2 puffs INH Q4HR PRN #1 inhaler 03/04/18 Inhaler] Doxycycline Hyclate 100 mg PO BID #20 capsule 03/04/18 Hydrocodone/Chlorphen P-Stirex 5 ml PO BID PRN #90 ml 03/04/18 [Hydrocodone-Chlorphen ER Susp] predniSONE [Prednisone] 40 mg PO DAILY #10 tablet 03/04/18 Albuterol Sulf [Ventolin Hfa 2 - 3 puffs INH Q4HR PRN #1 inhaler 09/01/18 Inhaler] Dexamethasone [Decadron] 4 mg PO DAILY #5 tablet 09/01/18 Hydrocodone/Acetaminophen [[place] 1 each PO Q6H PRN #20 tablet 09/01/18 5-325 Tablet] - Allergies Allergies/Adverse Reactions: Allergies Allergy/AdvReac Type Severity Reaction Status Date / Time Sulfa (Sulfonamide Allergy Hives Verified 09/01/18 12:38 Antibiotics) sumatriptan [From Imitrex] AdvReac Intermediate Anxiety Verified 09/01/18 12:38 sulfamethoxazole AdvReac Hives Verified 09/01/18 12:38 [From Bactrim] trimethoprim [From Bactrim] AdvReac Hives Verified 09/01/18 12:38 - Social History Does the pt smoke?: No Smoking Status: Never smoker Does the pt drink ETOH?: Yes Does the pt have substance abuse?: No - Immunizations Immunizations are current?: Yes - POLST Patient has POLST: No PD ED PE NORMAL - Vitals Vital signs reviewed: Yes - General General: Alert and oriented X 3, No acute distress, Well developed/nourished - HEENT HEENT: Ears normal, Pharynx benign - Neck Neck: Supple, no meningeal sign, No adenopathy, No JVD - Cardiac Cardiac: RRR, No murmur - Respiratory Respiratory: Clear bilaterally (no carse sounds, and mild central wheezing with cough/deep breathing. ) - Derm Derm: Normal color, Warm and dry - Extremities Extremities: Normal ROM s pain, No edema, No calf tenderness / cord - Neuro Neuro: Alert and oriented X 3, No motor deficit, Normal speech Results - Vitals Vitals: Vital Signs - 24 hr 09/01/18 12:35 Temperature 36.5 C Heart Rate 81 Respiratory 14 Rate Blood Pressure 132/77 H O2 Saturation 100 Oxygen O2 Source Room air - Labs Labs: Laboratory Tests 09/01/18 12:40 Influenza A (Rapid) Negative Influenza B (Rapid) Negative PD MEDICAL DECISION MAKING - ED course Complexity details: considered differential, d/w patient Departure - Departure Disposition: 01 Home, Self Care Clinical Impression: Upper respiratory infection Qualifiers: URI type: unspecified URI Qualified Code(s): J06.9 - Acute upper respiratory infection, unspecified Condition: Stable Record reviewed to determine appropriate education?: Yes Instructions: ED URI Viral W Wheezing Follow-Up: [facility] [employer] [employer] [Primary Care Provider] - Prescriptions: Albuterol Sulf [Ventolin Hfa Inhaler] 2 - 3 puffs INH Q4HR PRN #1 inhaler PRN Reason: Shortness Of Air/Wheezing Dexamethasone [Decadron] 4 mg PO DAILY #5 tablet Hydrocodone/Acetaminophen [[place] 5-325 Tablet] 1 each PO Q6H PRN #20 tablet PRN Reason: Pain Comments: This does sound like a viral illness. The discolored sputum correlates with infection but does not distinguish viral from bacterial. This type of illnesses typically viral. Stay well-hydrated. Ibuprofen or naproxen as needed for pains and fevers. Use an albuterol inhaler 2-3 puffs 4 times a day for the next 7-10 days to help with breathing and decrease coughing. Decadron steroid for bronchial inflammation daily for the next 5 days. Add hydrocodone as needed for pains and cough suppression. You can continue the Tessalon. Recheck if still not improving over the next several days or so Forms: Activity restrictions Discharge Date/Time: 09/01/18 15:21
[2018-09-01] MEDS ORDERED: HYDROcod/ACETAM 5/325 MG TABLET PO STA (15:04)
[2018-09-01] MEDS ORDERED: DEXAMETHASONE 10 MG/ML VIAL PO STA (15:04)
== END 2018-09-01 15:21 | disposition home or self-care (01) ==
LOC: ED 12:20
DX: J06.9 Acute upper respiratory infection, unspecified (principal); I10 Essential (primary) hypertension
CPT/HCPCS: 87275; 87276; 99283; A9270

== ENCOUNTER 2019-02-09 22:11 | Emergency (ER) | payer OTHER ==
[2019-02-09 22:17] VITALS: BP 152/90
--- NOTE | 2019-02-09 22:41 | ED Physician Documentation ---
History of Present Illness - Stated complaint Stated Complaint: RT RING FINGER PX - Chief complaint Chief Complaint: Ext Problem - History obtained from History obtained from: Patient - Additonal information Additional information: Patient is a 28-year-old female presenting with right ring finger pain over the past several weeks without inciting incident, trauma, or fall. Patient reports mild swelling to the area but no other overlying erythema or skin changes. Patient denies any change in sensation, strength, range of motion, but does admit that in the mornings it is more difficult to move the fingers around and open her hand fully. No other improving or worsening factors noted. Review of Systems Skin: denies: Rash, Lesions, Abrasion (s), Laceration (s) Musculoskeletal: reports: Extremity pain, Joint pain, Joint swelling. 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 - Past Surgical History Past Surgical History: No - Present Medications Home Medications: Ambulatory Orders Medication Instructions Recorded Confirmed Erythromycin Base [Erythromycin] 1 applic OP Q4H #1 tub 01/17/18 Lisinopril [Prinivil] 20 mg PO DAILY 01/17/18 01/17/18 Omeprazole [PriLOSEC] 20 mg PO DAILY 01/17/18 01/17/18 metFORMIN [Glucophage] 500 mg PO DAILY 01/17/18 01/17/18 Albuterol Sulf [Ventolin Hfa 1 - 2 puffs INH Q4HR PRN #1 inhaler 03/04/18 Inhaler] Doxycycline Hyclate 100 mg PO BID #20 capsule 03/04/18 Hydrocodone/Chlorphen P-Stirex 5 ml PO BID PRN #90 ml 03/04/18 [Hydrocodone-Chlorphen ER Susp] predniSONE [Prednisone] 40 mg PO DAILY #10 tablet 03/04/18 Albuterol Sulf [Ventolin Hfa 2 - 3 puffs INH Q4HR PRN #1 inhaler 09/01/18 Inhaler] Hydrocodone/Acetaminophen [[place] 1 each PO Q6H PRN #20 tablet 09/01/18 5-325 Tablet] dexAMETHasone [Decadron] 4 mg PO DAILY #5 tablet 09/01/18 - Allergies Allergies/Adverse Reactions: Allergies Allergy/AdvReac Type Severity Reaction Status Date / Time Sulfa (Sulfonamide Allergy Hives Verified 02/09/19 22:17 Antibiotics) sumatriptan [From Imitrex] AdvReac Intermediate Anxiety Verified 02/09/19 22:17 sulfamethoxazole AdvReac Hives Verified 02/09/19 22:17 [From Bactrim] trimethoprim [From Bactrim] AdvReac Hives Verified 02/09/19 22:17 - Social History Does the pt smoke?: No Smoking Status: Never smoker Does the pt drink ETOH?: Yes Does the pt have substance abuse?: No - Immunizations Immunizations are current?: Yes - POLST Patient has POLST: No PD ED PE NORMAL - Vitals Vital signs reviewed: Yes - General General: Alert and oriented X 3, No acute distress, Well developed/nourished - HEENT HEENT: Atraumatic, Moist mucous membranes - Neck Neck: Supple, no meningeal sign - Cardiac Cardiac: Strong equal pulses - Respiratory Respiratory: No respiratory distress - Derm Derm: Normal color, Warm and dry, No rash - Extremities Extremities: No deformity, No tenderness to palpate - Neuro Neuro: No motor deficit, No sensory deficit, Other (No appreciable swelling or other overlying skin changes to right ring finger. Right hand and all fingers with full range of motion, sensation, and strength. No other abnormalities noted.) - Psych Psych: Normal mood, Normal affect Results - Vitals Vitals: Vital Signs - 24 hr 02/09/19 22:14 Temperature 36.7 C Heart Rate 97 Respiratory 18 Rate Blood Pressure 152/90 H O2 Saturation 99 Oxygen O2 Source Room air PD MEDICAL DECISION MAKING - ED course Complexity details: considered differential, d/w patient, d/w family ED course: Patient presenting with right ring finger pain without inciting incident or tra rachel. Do not find bony abnormalities that would raise suspicion for dislocation or fracture and do not feel that she requires x-rays at this time. No laceration, abrasions, or other skin findings including any signs of infection such as cellulitis, abscess, joint infection or lymphangitis. Do not have concern for underlying tendon rupture, but possible tendon irritation or inflammation. Patient also describes symptoms that would be more consistent with arthritic changes. At this time, do not feel patient requires invasive testing or imaging, but offered Toradol discussed other supportive cares, as well as appropriate follow-up and return precautions. Patient voiced understanding and is comfortable with discharge plan. Departure - Departure Disposition: 01 Home, Self Care Clinical Impression: Finger pain, right Condition: Good Comments: Recommend elevation, ice application, ibuprofen/Tylenol as needed. Please follow-up with primary care physician in next 2 to 3 days and return to ED sooner if experience worsening symptoms or have other concerns.
[2019-02-09] MEDS ORDERED: KETOROLAC 60 MG/2 ML VIAL IM STA (22:48)
== END 2019-02-09 23:01 | disposition home or self-care (01) ==
LOC: ED 22:11
DX: M79.644 Pain in right finger(s) (principal); I10 Essential (primary) hypertension
CPT/HCPCS: 96372; 99283; 99284